=== PATIENT | female | born 1945 ===

== ENCOUNTER 2019-06-17 12:30 | Outpatient (CLI) | payer OTHER | END 2019-06-17 15:21 | disposition home or self-care (01) | LOC: MAMO-SONO 12:30 → SONOGRAMA 13:15 → MAMO-SONO 15:21 | DX: N60.11 Diffuse cystic mastopathy of right breast (principal); N60.12 Diffuse cystic mastopathy of left breast; R92.0 Mammographic microcalcification found on diagnostic imaging of breast ==